=== PATIENT | male | born 1950 | race Caucasian/White ===

== ENCOUNTER 2024-08-02 11:49 | Emergency (ER) | payer MEDICARE, SELFPAY ==
[2024-08-02] VITALS (10 sets, daily range): BP systolic 132–162; BP diastolic 73–89; BMI 24.9
[2024-08-02 12:25] LABS: Hematocrit 39.5 % (39.0-52.0); Hemoglobin 12.9 g/dL (13.0-18.0); Mean Corp Hgb Conc. 32.7 g/dL (33.0-37.0); Mean Corpuscular Hgb 30.4 pg (27.0-31.0); Mean Corpuscular Volume 92.9 fL (80.0-94.0); Mean Platelet Volume 8.9 fL (7.4-10.4); Platelet Count 225 10^3/uL (130-400); Red Blood Cell Count 4.25 10^6/uL (4.70-6.10); Red Cell Dist. Width 13.9 % (11.5-14.5); White Blood Cell Count 4.7 10^3/uL (4.8-10.8)
[2024-08-02 12:47] LABS: NT-proBNP 147 pg/ml; Troponin I 0.016 ng/ml
--- NOTE | 2024-08-02 12:48 | ED.GENMED ---
History of Present Illness
General
Chief Complaint: Breathing Problem
Source: patient
Exam Limitations: none
Time Seen by Provider: 08/02/24 11:59
Nursing documentation reviewed up to this point in time: agreed with
History of Present Illness
History of Present Illness:
Patient is a 74-year-old male presenting with police for medical clearance prior to incarceration. Patient reports approximately 1 week of mild chest pain and mild shortness of breath which he does have at baseline with known COPD. Patient has
had a nonproductive cough. Denies any fevers, chills, tearing back pain.
Patient states chest pain has been essentially constant since last week and not exertional. No pleuritic component to pain. Patient states he is now feels extremely dry and he is very thirsty. He states he has not been eating and drinking as much
as he should.
Patient does state that he was seen at a primary care doctor last week and found to have the flu. He was prescribed a medication that he is still currently taking�which he believes is Tamiflu.
No recent travel or surgeries. No lower extremity pain/edema.
Past History
Past History
ED Past Medical History: CAD and COPD; Negative Arrthythmia or Asthma
ED Past Surgical History: Cardiac (Stent)
Social History
Tobacco: Former smoker
Alcohol: None
Drug: None
Personal: Other (Noncontributory)
Living: correction
Employment: Not employed
Family History
Family History: Hypertension
Review of Systems
Review of Systems
Allergies reviewed?: Yes
All Other Systems: ROS reviewed and negative except as documented in HPI and ROS
Phy Exam
Physical Exam
Physical Exam:
Vitals: Patient's vital signs are stable. Afebrile
General: Patient is well appearing, no acute distress. Nontoxic-appearing
Skin: Warm and dry, no rashes or lesions
Head: Normocephalic, atraumatic
Eyes: Sclera nonicteric. EOMs intact. No nystagmus.
Throat: Protecting airway
Neck: Normal ROM, no cervical spine tenderness, no meningismus
Cardiac: Regular rate and rhythm, no murmurs. No reproducible chest wall tenderness
Pulm: O2 saturation 97 on room air. Normal respiratory effort, no wheezes, rales, rhonchi heard on exam.
Abdomen: Abdomen soft. No abdominal tenderness.
Extremities: No evidence of cyanosis or edema. Bilateral DP pulses palpable
Neuro: AAOx3. Grossly intact.
Psychiatric: Normal affect.
Scores
Heart Failure Risk
Heart Failure Risk Score: Not Applicable
Course
Orders/Labs/Results
Orders:
Orders
08/02/24 11:55
Electrocardiogram (*1) Urgent
Reason for Study: Shortness of Breath
EKG- Treatment ONCE
CR Chest - 2 Views Urgent
Comment:
Reason For Exam: shortness of breath
08/02/24 12:10
COVID-19 Antigen Urgent
Source: Nasal Swab
Complete Blood Count/With Diff Urgent
Comprehensive Metabolic Panel Urgent
NT-proBNP Urgent
Troponin I Routine
Influenza A+B Rapid Molecular Urgent
DARA Source: Nasal Swab
Specimen Description:
08/02/24 12:49
0.9% Sodium Chloride 1000 ml [Nss] 1,000 ml IV BOLUS
08/02/24 12:57
Ipratropium/Albuterol Sulfate [Duoneb] 3 ml INH R NOW STA
08/02/24 14:56
Troponin I Urgent
08/02/24 15:10
Electrocardiogram (*1) Urgent
Reason for Study: Chest Pain
EKG- Treatment ONCE
Abnormal Lab Results
08/02/24
12:10
WBC 4.7 L 10^3/uL
(4.8-10.8)
RBC 4.25 L 10^6/uL
(4.70-6.10)
Hgb 12.9 L g/dL
(13.0-18.0)
MCHC 32.7 L g/dL
(33.0-37.0)
Creatinine 0.6 L mg/dL
(0.7-1.3)
08/02/24 12:10
08/02/24 12:10
Vital Signs
Initial and Last Documented VS:
Initial Vital Signs
Pulse Resp Pulse Ox
79 27 97
08/02/24 11:59 08/02/24 11:59 08/02/24 11:59
Last Documented Vital Signs
Temp Pulse Resp BP Pulse Ox
97.6 F 67 20 133/73 96
08/02/24 12:14 08/02/24 15:54 08/02/24 15:54 08/02/24 15:54 08/02/24 15:54
MDM/Problems Addressed
Differential Diagnosis Includes:
Not limited to: Viral illness, COPD exacerbation, bronchitis,, acute coronary syndrome, etc.
MDM/Problems Addressed:
74 y.o male presenting with police for medical clearance prior to incarceration. Patient with 1 week of constant chest pressure and chronic dyspnea with recently dx influenza on tamiflu. No fevers. No exertional/ pleuritic component to chest pain.
Patient arrives hypertensive otherwise with stable vital signs. He is not hypoxic. Physical exam as above. EKG shows NSR without acute ischemic changes. Labs, troponin, BNP, CXR ordered and pending. Suspect symptoms likely secondary to known
ifluenza/viral illness. Will eval for possible pneumonia with CXR. Low suspicion for ACS or PE. No evidence of DVT on exam. Will give duoneb for symptomatic tx given known COPD. IVF.
Update: Patient positive for influenza A (apparently dx this past week by PCP). He is already on tamiflu. CXR shows no signs of pneumonia. Labs reveal mild leukopenia consistent with viral infection. Troponin negative x 2. Ultimately - suspect
symptoms 2/2 improving influenza. Patient remains hemodynamically stable, not hypoxic or tachycardic. He is not tachypneic. Advised to complete tamiflu. Otherwise- supportive care. Return precautions discussed. Patient stable for medical
incarceration.
Chronic conditions affecting care:
Hypertension, hyperlipidemia, COPD, CAD
Acute Exacerbation and/or Progression of Chronic Illness:
Acutely hypertensive
*Radiology
Radiology exam reviewed: preliminary read by ED provider (Chest x-ray reviewed by ar-no acute abnormality) and radiology read reviewed
*Pulse Oximetry
Patient hypoxic: no
*EKG
Interpreted by ED Provider?: Yes
EKG Intrepretation Date: 08/02/24
Interpretation: normal
Comparison EKG: no changes
Heart Rate: 74
Rate: normal
Rhythm: sinus
Irving: normal axis
Interval: normal QT interval
QRS Pattern: normal QRS
Ischemia: no ischemia
*Head Char Filter Tank Tender Interpretation
Rate: normal
Interpretation: normal
Heart Rate: 64
Rhythm: sinus
*Critical Care Note
Total Time (30-74mins, 75-104mins- exclusive of procedures): Not Applicable
ED Attending Note
-
Portions of this chart may have been created with voice recognition software.� Occasional wrong word or��sound alike� substitutions may have occurred due to the inherent limitations of voice recognition software.
Discharge Plan
Departure
Patient Disposition: Long-Term
Date of Disposition: 08/02/24
Time of Disposition: 15:48
Patient with high blood pressure during this ER visit?: Yes
Condition: Good
Covid-19: Negative COVID-19
Discharge Problem:
Influenza A, Chronic dyspnea
Instructions: Shortness of Breath (Dyspnea) (DC), Flu in adults - ED discharge instructions, BLOOD PRESSURE
Prescriptions:
No Action
metformin 500 MG tablet
500 mg PO BID@0800,1700
atorvastatin 80 MG tablet
80 mg PO HS
clopidogrel 75 MG tablet
75 mg PO DAILY
aspirin 81 MG tablet,delayed release (DR/EC)
81 mg PO DAILY
lorazepam 0.5 MG tablet
1 mg PO TID
pantoprazole 40 MG tablet,delayed release (DR/EC)
40 mg PO DAILY
furosemide 20 MG tablet
20 mg PO DAILY
albuterol sulfate 1 PUFF HFA aerosol inhaler
2 puff inhalation R QIDPRN PRN (Reason: sob/wheeze)
multivitamin with folic acid [Tab-A-Alivia] 1 TABLET tablet
1 tab PO DAILY
ascorbic acid (vitamin C) [Vitamin C] 1,000 MG tablet
1,000 mg PO DAILY
albuterol sulfate 2.5 MG/3 ML solution for nebulization
2.5 mg inhalation R QIDPRN PRN (Reason: sob/wheezing)
lisinopril 2.5 MG tablet
2.5 mg PO DAILY
zinc sulfate 220 MG capsule
220 mg PO TID
cholecalciferol (vitamin D3) 2,000 UNITS tablet
2,000 units PO DAILY
albuterol sulfate [Proventil HFA] 90 MCG/PUFF HFA aerosol inhaler
1 puff inhalation Q4HPRN PRN (Reason: shortness of breath) Qty: 1 0RF
Referrals:
UNKNOWN - PT DOES,NOT KNOW [Family Provider] -
Activity Restrictions/Additional Instructions:
Return to the emergency department for any high fevers, chest pain, difficulties breathing, worsening in current symptoms, or any other concerns
-As discussed�you were influenza A positive on the emergency department. This is likely contributing to your shortness of breath, along with your known COPD.
-Can take Tylenol as needed for any pain/fever. Stay well-hydrated. Get plenty rest.
-Continue to take all other medications as prescribed.
-Follow-up with primary care as needed for further evaluation/management
Monitor your symptoms and return to the emergency department with any acute worsening/new symptoms or any other concerns
PATIENT IS MEDICALLY CLEARED FOR INCARCERATION
Interventions
Interventions:
*Risk Screen - Suicide Last Done: 08/02/24 12:14
*General Assessment Last Done: 08/02/24 12:14
*Neglect/Abuse Screening Last Done: 08/02/24 12:14
ED- Fall Risk Assessment Last Done: 08/02/24 12:14
*ED COVID-19 Vaccine History Last Done: 08/02/24 12:14
*Nursing Disposition Last Done: 08/02/24 16:19
ED- Cardiac Assessment Last Done: 08/02/24 12:14
ED- Pulmonary Assessment Last Done: 08/02/24 12:14
Discharge Date and Time
Discharge Date/Time: 08/02/24 16:21
Print Language: [place]
[2024-08-02 12:51] LABS: COVID-19 Antigen Negative (Negative)
[2024-08-02 12:54] LABS: ALT (SGPT) 16 U/L (0-50); AST (SGOT) 30 U/L (17-59); Albumin 3.9 g/dl (3.5-5.0); Alkaline Phosphatase 68 U/L (38-126); Blood Urea Nitrogen 19 mg/dl (9-20); Calcium 8.5 mg/dl (8.4-10.2); Carbon Dioxide 28 mmol/L (22-30); Chloride 105 mmol/L (98-107); Estimated Creatinine Clearance 90 ml/min; Glucose 96 mg/dl (70-99); Sodium 139 mmol/L (135-145); Total Bilirubin 0.7 mg/dl (0.2-1.3); Total Protein 6.4 g/dl (6.3-8.2); eGFR > 60.00
[2024-08-02 12:58] LABS: % Basophils 0.2 % (0-2); % Eosinophils 1.3 % (0-6); % Immature Granulocytes 0.2 % (0-0.5); % Lymphocytes 29.7 % (20.5-51.1); % Monocytes 7.2 % (1.7-9.3); % Neutrophils 61.4 % (42.2-75.2); Absolute Eosinophils 0.1 10^3/uL (0-0.7); Absolute Lymphocytes 1.4 10^3/uL (1.2-3.4); Absolute Monocytes 0.3 10^3/uL (0.1-0.6); Absolute Neutrophils 2.9 10^3/uL (1.4-6.5); Nucleated Red Blood Cells % 0 % (-)
--- NOTE | 2024-08-02 13:23 | EDRN ---
potassium level drawn and sent, Cardizem gtt titrated off per Dr. Castellanos
[2024-08-02] MEDS: DUONEB 3 ML INH (13:33)
[2024-08-02] MEDS: NSS 1000 IV (13:37)
--- NOTE | 2024-08-02 15:01 | EDRN ---
second troponin drawn and sent
[2024-08-02 15:34] LABS: Troponin I 0.013 ng/ml
== END 2024-08-02 16:21 ==
LOC: EMR 11:49
PROVIDERS: Physician Assistant; EMERGENCY PHYSICIAN Emergency Medicine
DX: J10.1 Influenza due to other identified influenza virus with other respiratory manifestations (principal); J44.9 Chronic obstructive pulmonary disease, unspecified; I25.10 Atherosclerotic heart disease of native coronary artery without angina pectoris; E78.5 Hyperlipidemia, unspecified; I10 Essential (primary) hypertension; Z87.891 Personal history of nicotine dependence; Z95.5 Presence of coronary angioplasty implant and graft
CPT/HCPCS: 94640; 99284; 96360; 71046; 80053; 83880; 84484; 85025; 87502; 87811; 93005

== ENCOUNTER 2024-08-04 21:13 | Observation (INO) | payer OTHER, SELFPAY ==
[2024-08-04 12:53] VITALS: BP 117/65; BMI 25.0
[2024-08-04 12:55] VITALS: BP 117/65
[2024-08-04 14:00] VITALS: BP 97/56
[2024-08-04 14:01] LABS: % Basophils 0.1 % (0-2); % Eosinophils 2.3 % (0-6); % Immature Granulocytes 0.3 % (0-0.5); % Monocytes 5.9 % (1.7-9.3); % Neutrophils 76.4 % (42.2-75.2); Absolute Eosinophils 0.2 10^3/uL (0-0.7); Absolute Lymphocytes 1.1 10^3/uL (1.2-3.4); Absolute Monocytes 0.4 10^3/uL (0.1-0.6); Absolute Neutrophils 5.6 10^3/uL (1.4-6.5); Hematocrit 40.7 % (39.0-52.0); Hemoglobin 13.3 g/dL (13.0-18.0); Mean Corp Hgb Conc. 32.7 g/dL (33.0-37.0); Mean Corpuscular Hgb 30.4 pg (27.0-31.0); Mean Corpuscular Volume 92.9 fL (80.0-94.0); Nucleated Red Blood Cells % 0 % (-); Platelet Count 303 10^3/uL (130-400); Red Blood Cell Count 4.38 10^6/uL (4.70-6.10); White Blood Cell Count 7.3 10^3/uL (4.8-10.8)
[2024-08-04 14:16] LABS: ALT (SGPT) 17 U/L (0-50); AST (SGOT) 29 U/L (17-59); Albumin 3.9 g/dl (3.5-5.0); Alkaline Phosphatase 81 U/L (38-126); Blood Urea Nitrogen 19 mg/dl (9-20); Calcium 8.3 mg/dl (8.4-10.2); Carbon Dioxide 29 mmol/L (22-30); Chloride 101 mmol/L (98-107); Estimated Creatinine Clearance 75 ml/min; Glucose 92 mg/dl (70-99); Lactic Acid 2.1 mmol/L (0.7-2.0); Sodium 139 mmol/L (135-145); Total Bilirubin 0.6 mg/dl (0.2-1.3); Total Protein 6.9 g/dl (6.3-8.2); eGFR > 60.00
[2024-08-04] MEDS: ProAIR HFA INHALER 2 PUFF INH (14:19)
[2024-08-04 14:26] LABS: NT-proBNP 223 pg/ml; Troponin I < 0.012 ng/ml
[2024-08-04 15:00] VITALS: BP 101/66
[2024-08-04] MEDS: DECADRON 10 MG IV (17:35)
[2024-08-04] MEDS: ROCEPHIN 2000 MG IV (17:35)
[2024-08-04] MEDS: ZITHROMAX INFUSION 250 IV (17:36)
[2024-08-04 17:42] LABS: Lipase 58 U/L (23-300)
--- NOTE | 2024-08-04 17:45 | ED.GENMED ---
History of Present Illness
General
Chief Complaint: Breathing Problem
Source: patient and ambulance crew
Exam Limitations: none
Time Seen by Provider: 08/04/24 13:07
Nursing documentation reviewed up to this point in time: agreed with
History of Present Illness
History of Present Illness:
74-year-old male presenting to the emergency department with concerns of hypoxemia all the present. Pulse ox in the 80s. Recently diagnosed with the flu has been taking Tamiflu without improvement. Does have some respiratory noise according to
staff. He denies any chest pain but does have significant shortness of breath. Feels very weak and tired
Past History
Past History
ED Past Medical History: CAD and COPD; Negative Arrthythmia or Asthma
ED Past Surgical History: Cardiac (Stent)
Social History
Tobacco: Former smoker
Alcohol: None
Drug: None
Personal: Other (Noncontributory)
Living: penitentiary
Employment: Not employed
Family History
Family History: Hypertension
Review of Systems
Review of Systems
Allergies reviewed?: Yes
All Other Systems: ROS reviewed and negative except as documented in HPI and ROS
Phy Exam
Physical Exam
Physical Exam:
GENERAL: Alert , in no apparent distress
EYE: pupils equal and reactive
NECK: Supple, no significant adenopathy.
ENT: o/p clr, mmm.
CARDIAC: Regular rate and rhythm .
LUNGS: Diffuse end expiratory wheezing, bilateral lower lobe rhonchi
ABDOMEN: Soft, without focal tenderness, no r/g, no cvat
NEUROLOGICAL: Alert and oriented, no focal neuro deficits
SKIN: Warm and dry, skin intact.
MUSCULOSKELETAL: No edema, well perfused.
PSYCH: Normal and appropriate interaction.
Scores
Heart Failure Risk
Heart Failure Risk Score: Not Applicable
Course
Orders/Labs/Results
Orders:
Orders
08/04/24 13:38
Cardiac Monitoring- Treatment ONCE
Albuterol [ProAIR HFA INHALER] 2 puff INH R NOW STA
08/04/24 13:39
Electrocardiogram (*1) Stat
Reason for Study: Other
Other Reason for Exam: pneumonia
EKG- Treatment ONCE
CR Chest - 2 Views Urgent
Comment:
Reason For Exam: sob, rhonchi rll
Peak Flow Rate [RESP] Urgent
Quantity: 1
Pre-Bronchodilator: Yes
Post Bronchodilator: Yes
Special Instructions: Pre and Post Peak Flow before and after Bronchodilator
08/04/24 13:47
Complete Blood Count/With Diff Urgent
Comprehensive Metabolic Panel Urgent
Lactic Acid Q4H
Comment: CANCEL 2nd LACTIC ACID IF 1st LACTIC ACID IS LESS THAN 2
Lipase Urgent
Comment: ADD ON
NT-proBNP Urgent
Troponin I Urgent
08/04/24 16:52
Miscellaneous Order As Directed
Miscellaneous order: Ambulatory pulse ox
08/04/24 17:02
Add On- LAB Urgent
Tests Added?: lipase
08/04/24 17:19
Azithromycin 500 mg/250 ml [Zithromax Infusion] 500 mg in 250 ml IV NOW
CefTRIAXone [Rocephin] 2,000 mg IV NOW STA
Dexamethasone Sod Phosphate [Decadron] 10 mg IV NOW STA
08/04/24 17:21
Lactic Acid Q4H
Comment: CANCEL 2nd LACTIC ACID IF 1st LACTIC ACID IS LESS THAN 2
08/04/24 17:27
Albuterol [ProAIR HFA INHALER] 8 puff INH R NOW STA
Abnormal Lab Results
08/04/24
13:47
RBC 4.38 L 10^6/uL
(4.70-6.10)
MCHC 32.7 L g/dL
(33.0-37.0)
Absolute Lymphs (auto) 1.1 L 10^3/uL
(1.2-3.4)
Neutrophils % 76.4 H %
(42.2-75.2)
Lymphocytes % 15.0 L %
(20.5-51.1)
Lactic Acid 2.1 H mmol/L
(0.7-2.0)
Calcium 8.3 L mg/dl
(8.4-10.2)
08/04/24 13:47
08/04/24 13:47
Vital Signs
Initial and Last Documented VS:
Initial Vital Signs
Temp Pulse Resp BP Pulse Ox
97.5 F 85 24 117/65 95
08/04/24 12:53 08/04/24 12:53 08/04/24 12:53 08/04/24 12:53 08/04/24 12:53
Last Documented Vital Signs
Temp Pulse Resp BP Pulse Ox
97.5 F 67 20 101/66 96
08/04/24 12:53 08/04/24 15:00 08/04/24 15:00 08/04/24 15:00 08/04/24 15:00
MDM/Problems Addressed
MDM/Problems Addressed:
74-year-old male presenting [facility] with concerns of respiratory distress while at the penitentiary. Here pulse ox in the low 90s without oxygen. He is When I assessed him. He has significant respiratory noise diffusely including expiratory
wheezing. Does not history of COPD. Was started on a steroid as well as albuterol treatment. Otherwise x-ray with possible early pneumonia though unclear patient was started on antibiotics otherwise will be admitted due to respiratory distress.
*Critical Care Note
Total Time (30-74mins, 75-104mins- exclusive of procedures): Not Applicable
ED Attending Note
-
Portions of this chart may have been created with voice recognition software.� Occasional wrong word or��sound alike� substitutions may have occurred due to the inherent limitations of voice recognition software.
Discharge Plan
Departure
Patient Disposition: Admit
Date of Disposition: 08/04/24
Time of Disposition: 17:45
Admit to: Med/Surg
Admit to doctor: Ej
Presentation/result/management discussed w/ accepting MD/DO: Hospitalist
Patient with high blood pressure during this ER visit?: No
Condition: Good
Covid-19: Not Applicable
Discharge Problem:
Influenza, Hypoxemia, COPD exacerbation
Prescriptions:
No Action
metformin 500 MG tablet
500 mg PO BID@0800,1700
atorvastatin 80 MG tablet
80 mg PO HS
clopidogrel 75 MG tablet
75 mg PO DAILY
aspirin 81 MG tablet,delayed release (DR/EC)
81 mg PO DAILY
lorazepam 0.5 MG tablet
1 mg PO TID
pantoprazole 40 MG tablet,delayed release (DR/EC)
40 mg PO DAILY
furosemide 20 MG tablet
20 mg PO DAILY
albuterol sulfate 1 PUFF HFA aerosol inhaler
2 puff inhalation R QIDPRN PRN (Reason: sob/wheeze)
multivitamin with folic acid [Tab-A-Alivia] 1 TABLET tablet
1 tab PO DAILY
ascorbic acid (vitamin C) [Vitamin C] 1,000 MG tablet
1,000 mg PO DAILY
albuterol sulfate 2.5 MG/3 ML solution for nebulization
2.5 mg inhalation R QIDPRN PRN (Reason: sob/wheezing)
lisinopril 2.5 MG tablet
2.5 mg PO DAILY
zinc sulfate 220 MG capsule
220 mg PO TID
cholecalciferol (vitamin D3) 2,000 UNITS tablet
2,000 units PO DAILY
albuterol sulfate [Proventil HFA] 90 MCG/PUFF HFA aerosol inhaler
1 puff inhalation Q4HPRN PRN (Reason: shortness of breath) Qty: 1 0RF
Referrals:
[facility] [Family Provider] -
Interventions
Interventions:
*Risk Screen - Suicide Last Done: 08/04/24 12:53
*General Assessment Last Done: 08/04/24 12:53
ED- Fall Risk Assessment Last Done: 08/04/24 12:58
ED- Cardiac Assessment Last Done: 08/04/24 12:58
ED- Pulmonary Assessment Last Done: 08/04/24 12:58
Discharge Date and Time
Print Language: MALAY
[2024-08-04 17:46] LABS: Lactic Acid 1.8 mmol/L (0.7-2.0)
[2024-08-04] MEDS: ProAIR HFA INHALER 8 PUFF INH (18:33)
--- NOTE | 2024-08-04 20:20 | HPS.HSE ---
Family Physician
-
Family Physician: Facility [facility]
Chief Complaint
-
AMS, SOB, in [facility]
History of Present Illness
The patient is a 74-year-old male with PMH significant for CAD, COPD, who presents to the ED from [facility], due to concerns for low oxygen saturation in the group home, associated with increased lethargy and mental status changes. hypoxemia all the
present. Oxygen saturation was noted to be in the 80s. He recently was diagnosed with Flu A (on 08/02), and has been taking Tamiflu without improvement. The patient denies complaints at this time. He is somnolent but arousable during this history and
physical, is able to answer questions but falls asleep quickly. Note by ED provider 'He denies any chest pain but does have significant shortness of breath.' Feels very weak and tired.
ED txt: IV Azithromycin, IV Rocephin, Dexa 10 mg IV once, Albuterol INH
Medical History
Past Medical History
Past Medical History: Reports CAD and COPD
Past Surgical History: Reports Cardiac (stent)
Social History
Tobacco: Former Smoker
Alcohol: None
Living: Snf
Family History
Family History: Hypertension
Allergies / Home Medications
Allergies reflects when Allergies were last updated in [facility].
Home Medications with original date entered in [facility]
Allergy/Medication List:
Allergies
Allergy/AdvReac Type Severity Reaction Status Date / Time
cephalexin [From Keflex] Allergy Unknown Verified 08/04/24 12:52
clarithromycin [From Biaxin] Allergy Unknown Verified 08/04/24 12:52
Home Medications
albuterol sulfate 90 mcg/actuation aerosol inhaler 2 puff inhalation R QIDPRN PRN sob/wheeze 10/16/19
aspirin 81 mg tablet,delayed release 81 mg PO DAILY 10/16/19
atorvastatin 80 mg tablet 80 mg PO HS 10/16/19
clopidogrel 75 mg tablet 75 mg PO DAILY 10/16/19
furosemide 20 mg tablet 20 mg PO DAILY 10/16/19
lorazepam 0.5 mg tablet 1 mg PO TID 10/16/19
metformin 500 mg tablet 500 mg PO BID@0800,1700 10/16/19
multivitamin with folic acid 400 mcg tablet (Tab-A-Alivia) 1 tab PO DAILY 10/16/19
pantoprazole 40 mg tablet,delayed release 40 mg PO DAILY 10/16/19
albuterol sulfate 2.5 mg/3 mL (0.083 %) solution for nebulization 2.5 mg inhalation R QIDPRN PRN sob/wheezing 07/03/21
albuterol sulfate 90 mcg/actuation aerosol inhaler (Proventil HFA) 1 puff inhalation Q4HPRN PRN shortness of breath ##1 07/03/21
ascorbic acid (vitamin C) 1,000 mg tablet (Vitamin C) 1,000 mg PO DAILY 07/03/21
cholecalciferol (vitamin D3) 50 mcg (2,000 unit) tablet 2,000 units PO DAILY 07/03/21
lisinopril 2.5 mg tablet 2.5 mg PO DAILY 07/03/21
zinc sulfate 50 mg zinc (220 mg) capsule 220 mg PO TID 07/03/21
Review of Systems
-
A 12 point ROS was completed and negative except as noted: Yes
Physical Exam
Vital Signs
Vital Signs
Temp Pulse Resp BP Pulse Ox
97.5 F 88 18 101/66 95
08/04/24 12:53 08/04/24 18:35 08/04/24 18:35 08/04/24 15:00 08/04/24 18:35
Physical Exam
General: Appears Chronically Ill
HEENT: NormoCephalic, Anicteric and Other (dry mucous membranes)
Respiratory: Wheezes (bilateral end expiratory, tight lung sounds)
Cardiac: S1/S2 and Regular Rhythm
GI: Soft, Non Tender and Non Distended
Musculoskeletal: No Clubbing, No Cyanosis and No Edema
Skin: Warm and Dry
Neuro: No Motor Deficits and Sedated
Psych: Calm
Laboratory Results
-
08/04/24 13:47
08/04/24 13:47
Laboratory Results
Lactic Acid 1.8 mmol/L (0.7-2.0) 08/04/24 17:21
Total Bilirubin 0.6 mg/dl (0.2-1.3) 08/04/24 13:47
AST 29 U/L (17-59) 08/04/24 13:47
ALT 17 U/L (0-50) 08/04/24 13:47
Alkaline Phosphatase 81 U/L (38-126) 08/04/24 13:47
Troponin I < 0.012 ng/ml 08/04/24 13:47
Lipase 58 U/L (23-300) 08/04/24 13:47
Data Reviewed
-
Diagnostic Radiology: Report Reviewed by me (CXR cardiomegaly. There is elevation of the left hemidiaphragm with left basilar opacities which likely represent chronic atelectasis/scarring, less likely developing pneumonia.)
Medical Tests (Nuc Med, Echo, EKG etc): Report Reviewed by me (EKG NSR, non-specific T wave abnormalities)
Impression/Plan
-
IMPRESSION:
The patient is a 74-year-old male with PMH significant for CAD, COPD, who presents to the ED from [facility], due to concerns for low oxygen saturation in the group home, associated with increased lethargy and mental status changes. hypoxemia all the
present. Oxygen saturation was noted to be in the 80s. He recently was diagnosed with Flu A (on 08/02), and has been taking Tamiflu without improvement. The patient denies complaints at this time. He is somnolent but arousable during this history and
physical, is able to answer questions but falls asleep quickly. Note by ED provider 'He denies any chest pain but does have significant shortness of breath.' Feels very weak and tired.
ED txt: IV Azithromycin, IV Rocephin, Dexa 10 mg IV once, Albuterol INH
#Acute exacerbation of COPD with acute respiratory insufficiency
-med surg admit obs status
-cont steroids-IV Dexa 4 mg TID and wean down per clinical course
-Doxy (allergy to clarithromycin)
-Duo-nebs, respiratory therapy, mucinex, consider mucomyst nebs
-pulse oximetry monitoring, O2 per NC if needed to keep O2 >92
#CAD
-pending med rec, will add back home meds once med rec complete
#Pt from group home
-officers at bedside
DVT proph-Lovenox
Full Code
[2024-08-04 21:58] VITALS: BP 139/72; BMI 24.2
[2024-08-04] MEDS: TYLENOL 650 MG PO (22:24)
[2024-08-04] MEDS: NSS 1000 IV (22:24)
[2024-08-04] MEDS: DECADRON 4 MG IV (23:18)
[2024-08-05 06:00] VITALS: BMI 23.9
[2024-08-05] MEDS: TYLENOL 650 MG PO ×3 (06:02→16:25)
--- NOTE | 2024-08-05 06:39 | PTCARENOTE ---
Patient arrived on unit @2149 via stretcher from ED, ambulate to bed with assist x1 RW. Patient c/o 01/07 mid back pain (not new per pt), prn tylenol given as requested. Patient AAOx3, drowsy, forgetful. Med rec unable to be completed, pt unable to
recall any information on medications. Skin check completed, oriented to unit, call au within reach.
0600, pt voided 120 mls, bladder scan 459 ml. SHOP TECH notified, order received. Straight cath tolerated with 300 mls output.
[2024-08-05 07:35] VITALS: BP 137/73
[2024-08-05] MEDS: DUONEB 3 ML INH ×4 (07:47→20:17)
[2024-08-05] MEDS: PULMICORT 0.5 MG INH ×2 (07:47→20:17)
[2024-08-05 08:33] LABS: % Immature Granulocytes 0.2 % (0-0.5); % Lymphocytes 11.7 % (20.5-51.1); % Monocytes 2.9 % (1.7-9.3); % Neutrophils 85.2 % (42.2-75.2); Absolute Lymphocytes 0.6 10^3/uL (1.2-3.4); Absolute Monocytes 0.1 10^3/uL (0.1-0.6); Absolute Neutrophils 4.2 10^3/uL (1.4-6.5); Hematocrit 38.5 % (39.0-52.0); Hemoglobin 12.7 g/dL (13.0-18.0); Mean Corpuscular Hgb 29.8 pg (27.0-31.0); Mean Corpuscular Volume 90.4 fL (80.0-94.0); Mean Platelet Volume 8.6 fL (7.4-10.4); Nucleated Red Blood Cells % 0 % (-); Platelet Count 288 10^3/uL (130-400); Red Blood Cell Count 4.26 10^6/uL (4.70-6.10); White Blood Cell Count 4.9 10^3/uL (4.8-10.8)
[2024-08-05] MEDS: MUCINEX 600 MG PO (08:59)
[2024-08-05] MEDS: VIBRAMYCIN 100 MG PO (08:59)
[2024-08-05] MEDS: DECADRON 4 MG IV (08:59)
--- NOTE | 2024-08-05 11:20 | CM ---
Patient on restrictions and supervision of [facility]. CM spoke with [facility] at [facility] and per nurse patient normally does not have any assistive devices and wears dentures, glasses. Per nursing patient can be difficult to understand, with his speech.
Patient was recently [facility] to the detention on 08/02/24 and had been there previously several months ago. Current plan is for discharge back to the detention when medically appropriate. CM will continue to follow for discharge planning needs.
PLan; return to [facility]
call to [facility] [phone]
[2024-08-05 11:42] LABS: Blood Urea Nitrogen 25 mg/dl (9-20); Calcium 8.1 mg/dl (8.4-10.2); Carbon Dioxide 24 mmol/L (22-30); Chloride 104 mmol/L (98-107); Estimated Creatinine Clearance 87 ml/min; Glucose 180 mg/dl (70-99); Potassium 4.7 mmol/L (3.5-5.1); Sodium 139 mmol/L (135-145); eGFR > 60.00
[2024-08-05] MEDS: TORADOL 30 MG IV (12:41)
--- NOTE | 2024-08-05 13:10 | PTCARENOTE ---
Dr. Coon made aware that this RN spoke to [facility] RN about patients medications. RN at [facility] can confirm that patient takes Gabapentin 300 mg TID and Effexor 150 mg daily. RN at [facility] stated she is unsure if patient takes any other
medications then that because patient went to [facility] 08/02/24 and was on meth at that time. Per RN at [facility], patient was being treated for meth withdrawal and was given Ativan 1 mg, Benadryl, Klonopin 1mg, and Seroquel 25 mg yesterday. Patient started on
withdrawal protocol. Patient unsure of what medications he takes.
[2024-08-05 14:40] VITALS: BP 128/56
--- NOTE | 2024-08-05 14:55 | W.PN.HOSP.TC ---
Addendum entered and electronically signed by Malik Coon DO 08/06/24 15:35:
>30 minutes were utilized for discharge planning and preparation as well as arrangement of outpatient follow-up
Original Note:
Today's Communication/Plan
-
Transition to prednisone
Continue with Tamiflu through 08/07
Resume CAD meds (hold Plavix as unclear timing of stent)
Order x-ray of left rib cage
Possible discharge
Assessment / Plan
Assessment / Plan
#Acute hypoxemic respiratory insufficiency
#Influenza A
#COPD with exacerbation
-Briefly required oxygen here, started on Tamiflu at present on 08/02
-Developed worsening shortness of breath and wheezing and brought into the hospital yesterday
-Briefly required supplemental oxygen, CO2 borderline high on admission BMP
-Was given 1 dose of IV antibiotics on arrival; continued on Tamiflu and started on dexamethasone
-As of this morning SpO2 97% on room air
-Transition to prednisone for 5-day course
-Continue Tamiflu through 08/07/2024
-SpO2 goal 88% or higher
#Left sided rib 3�5 pain
-Patient was complaining of tenderness to the ribs near the left axilla
-On palpation he does have reproducible tenderness, no gross deformity or step-offs
-He denies any known injury, reportedly was recently sent to longterm, question trauma near that time
-Ordered x-ray of the left rib cage, 3 view
-Tylenol and Toradol for pain
#CAD s/p PCI
-OP records show home meds of DAPT, high intensity statin, ACEi
-Nursing spoke with present today, they were unable to provide med rec as they do not know his meds
-Will try to obtain supplemental history from outside records if present
-Will resume him on statin, ACEi, and aspirin for now
#T2DM
-Rru-hovfsbo-bnjjyxzuj, home medications include metformin twice daily
-No recent A1c thoug doubt that he has been compliant with his outside regimen
-No known history of microvascular disease complications
-Start ISS with Accu-Cheks for now
DVT prophylaxis: Subcutaneous Lovenox
Diet: Cholesterol-lowering
CODE STATUS: Full code
Disposition: Possible DC back to residential today
Anticipated Discharge: Within 24 hours
Subjective/Interval History
-
Date of Service: August 05, 2024
Seen and examined at the bedside. No acute events reported since admission. AFVSS today
Patient was complaining of left-sided rib pain tenderness to palpation. Denies any known injury, states it been present for a few days. Reportedly, patient was just taken to longterm this past Saturday. Was being treated for opioid withdrawal while
there
Objective Data
-
Labs:
Laboratory Results
08/05/24 08/05/24
08:21 10:34
WBC 4.9
Hgb 12.7 L
Hct 38.5 L
Plt Count 288
Sodium Cancelled 139
Potassium Cancelled 4.7
Chloride Cancelled 104
Carbon Dioxide Cancelled 24
BUN Cancelled 25 H
Creatinine Cancelled 0.6 L
Glucose Cancelled 180 H
Calcium Cancelled 8.1 L
Vital Signs:
Vital Signs
Temp Pulse Resp BP Pulse Ox
97.4 F 86 20 128/56 93
08/05/24 14:40 08/05/24 14:40 08/05/24 14:40 08/05/24 14:40 08/05/24 14:40
I&O
08/04/24 08/05/24 08/06/24
06:59 06:59 06:59
Intake Total 920 / 920
Output Total 300 / 300 120 / 120
Balance -300 / -300 800 / 800
Review of Systems
-
History Source: Patient
All other systems: Reviewed and negative
Physical Exam
-
General: Well Developed, Well Nourished, No Apparent Distress and Other
HEENT: Normocephalic, Atraumatic and Moist Mucous Membranes
Respiratory: Clear to Auscultation and Non Labored Respirations; Negative Wheezes, Rales, Rhonchi or Accessory Resp Muscle Use
Cardiac: Regular Rhythm and S1/S2; Negative Murmur, Rub or Gallop
GI: Soft, Nontender and Nondistended
Musculoskeletal: No Clubbing, No Cyanosis, No Edema and Other (Tenderness to palpation of left ribs 4/5 at midaxillary line; no gross deformity or step-off)
Skin: Warm and Dry; Negative Rash
Neuro: AO x 3 and Nonfocal/Grossly Intact
Psych: Calm
Data Reviewed
-
Labs: Labs Reviewed by me and Discussed with Patient
[2024-08-05 15:01] VITALS: BMI 23.9
--- NOTE | 2024-08-05 15:30 | CM ---
Patient for discharge back to [facility]. Please call report to [phone]/fax [phone]. CM [facility] of discharge. CM will continue to follow for discharge planning needs.
Plan; return to [facility]
[2024-08-05] MEDS: LOW STRENGTH ASPIRIN 81 MG PO (15:49)
[2024-08-05] MEDS: NEURONTIN 300 MG PO (15:49)
[2024-08-05] MEDS: LIDOCAINE 4% PATCH 1 PATCH TOPICAL (15:49)
[2024-08-05 16:32] LABS: Glucose - Point of Care 194 mg/dl (70-99)
[2024-08-05] MEDS: LIPITOR 80 MG PO (17:16)
[2024-08-05] MEDS: LOVENOX 40 MG SC (17:17)
[2024-08-05] MEDS: NOVOLOG FLEXPEN-MODERATE RESISTANCE 1 UNITS SC (17:59)
[2024-08-05 18:23] VITALS: BP 116/55
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
== END 2024-08-05 21:08 ==
LOC: 3 WEST ACU 21:13
PROVIDERS: Physician Assistant; ADMITTING PHYSICIAN Internal Medicine; ATTENDING PHYSICIAN Internal Medicine; EMERGENCY PHYSICIAN Emergency Medicine
DX: J10.1 Influenza due to other identified influenza virus with other respiratory manifestations (principal); J44.1 Chronic obstructive pulmonary disease with (acute) exacerbation; R06.89 Other abnormalities of breathing; R09.02 Hypoxemia; I25.10 Atherosclerotic heart disease of native coronary artery without angina pectoris; I51.7 Cardiomegaly; R06.02 Shortness of breath; J98.11 Atelectasis; S22.42XA Multiple fractures of ribs, left side, initial encounter for closed fracture; X58.XXXA Exposure to other specified factors, initial encounter; Y93.9 Activity, unspecified; Y92.9 Unspecified place or not applicable; E11.9 Type 2 diabetes mellitus without complications; F11.20 Opioid dependence, uncomplicated; R94.31 Abnormal electrocardiogram [ECG] [EKG]; Z95.5 Presence of coronary angioplasty implant and graft; Z87.891 Personal history of nicotine dependence; Z82.49 Family history of ischemic heart disease and other diseases of the circulatory system; Z79.84 Long term (current) use of oral hypoglycemic drugs; Z79.02 Long term (current) use of antithrombotics/antiplatelets; Z79.82 Long term (current) use of aspirin; Z79.51 Long term (current) use of inhaled steroids; R41.82 Altered mental status, unspecified; Z88.1 Allergy status to other antibiotic agents
CPT/HCPCS: 71046; 71101; 80048; 80053; 82962; 83605; 83690; 83880; 84484; 85025; 87070; 93005; 94640; 96374; 96375; 99285

== ENCOUNTER 2024-08-08 17:24 | Inpatient (IN) | payer OTHER, SELFPAY ==
[2024-08-08] VITALS (14 sets, daily range): BP systolic 107–132; BP diastolic 52–66; BMI 25.0
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
[2024-08-08] MEDS: DUONEB 3 ML INH ×2 (09:20→21:45)
[2024-08-08 09:49] LABS: % Basophils 0.1 % (0-2); % Eosinophils 0.1 % (0-6); % Immature Granulocytes 0.2 % (0-0.5); % Neutrophils 85.6 % (42.2-75.2); Absolute Lymphocytes 1.1 10^3/uL (1.2-3.4); Absolute Monocytes 0.6 10^3/uL (0.1-0.6); Absolute Neutrophils 10.5 10^3/uL (1.4-6.5); Hematocrit 41.5 % (39.0-52.0); Hemoglobin 13.7 g/dL (13.0-18.0); Mean Corpuscular Hgb 30.5 pg (27.0-31.0); Mean Corpuscular Volume 92.4 fL (80.0-94.0); Mean Platelet Volume 8.9 fL (7.4-10.4); Nucleated Red Blood Cells % 0 % (-); Platelet Count 385 10^3/uL (130-400); Red Blood Cell Count 4.49 10^6/uL (4.70-6.10); Red Cell Dist. Width 14.6 % (11.5-14.5); White Blood Cell Count 12.3 10^3/uL (4.8-10.8)
[2024-08-08 10:13] LABS: ALT (SGPT) 393 U/L (0-50); AST (SGOT) 307 U/L (17-59); Albumin 3.7 g/dl (3.5-5.0); Alkaline Phosphatase 549 U/L (38-126); Blood Urea Nitrogen 38 mg/dl (9-20); Calcium 9.1 mg/dl (8.4-10.2); Carbon Dioxide 31 mmol/L (22-30); Chloride 100 mmol/L (98-107); Estimated Creatinine Clearance 65 ml/min; Glucose 126 mg/dl (70-99); Potassium 4.5 mmol/L (3.5-5.1); Sodium 136 mmol/L (135-145); Total Bilirubin 0.9 mg/dl (0.2-1.3); Total Protein 6.9 g/dl (6.3-8.2); eGFR > 60.00
[2024-08-08] MEDS: NSS 1000 IV (11:15)
[2024-08-08] MEDS: DECADRON 10 MG IV (13:09)
[2024-08-08] MEDS: VENTOLIN NEBULES 2.5 MG INH (13:09)
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
[2024-08-08] MEDS: ADVAIR HFA 115/21 MCG INHALER 2 PUFF INH (21:45)
[2024-08-08 21:46] LABS: Glucose - Point of Care 245 mg/dl (70-99)
[2024-08-08] MEDS: NOVOLOG FLEXPEN-MODERATE RESISTANCE 3 UNITS SC (21:46)
[2024-08-08] MEDS: BENADRYL 25 MG PO (21:47)
[2024-08-08] MEDS: NEURONTIN 300 MG PO (21:48)
[2024-08-08] MEDS: TAMIFLU 75 MG PO (21:48)
[2024-08-08] MEDS: MIRAPEX 0.25 MG PO (21:48)
[2024-08-08] MEDS: LOVENOX 40 MG SC (21:48)
[2024-08-08] MEDS: KLONOPIN 0.5 MG PO (21:49)
[2024-08-08] MEDS: ZINC 50 MG PO (21:49)
[2024-08-08] MEDS: LIPITOR 80 MG PO (21:49)
[2024-08-08] MEDS: FLOMAX 0.4 MG PO (21:49)
[2024-08-08] MEDS: ZINC PO (22:33)
[2024-08-08 22:45] LABS: Glucose - Point of Care 224 mg/dl (70-99)
[2024-08-08] MEDS: SENOKOT-S 1 TABLET PO (23:15)
[2024-08-08 23:31] LABS: Amphetamines Negative (Negative); Barbiturates Negative (Negative)
[2024-08-08 23:33] LABS: Benzodiazepines Negative (Negative)
[2024-08-08 23:34] LABS: Buprenorphine Negative (Negative); Cocaine Negative (Negative); Marijuana Negative (Negative); Methadone Negative (Negative); Methamphetamines Negative (Negative); Opiates Positive (Negative); Phencyclidine Negative (Negative); Tricyclic Antidepressants Negative (Negative)
[2024-08-08 23:43] LABS: Fentanyl, Urine Negative (Negative)
[2024-08-09] VITALS (13 sets, daily range): BP systolic 98–121; BP diastolic 49–72
[2024-08-09 05:22] LABS: % Immature Granulocytes 0.5 % (0-0.5); % Lymphocytes 7.5 % (20.5-51.1); % Monocytes 3.7 % (1.7-9.3); % Neutrophils 88.3 % (42.2-75.2); Absolute Lymphocytes 0.6 10^3/uL (1.2-3.4); Absolute Monocytes 0.3 10^3/uL (0.1-0.6); Absolute Neutrophils 7.1 10^3/uL (1.4-6.5); Hematocrit 29.9 % (39.0-52.0); Mean Corp Hgb Conc. 33.4 g/dL (33.0-37.0); Mean Corpuscular Hgb 30.5 pg (27.0-31.0); Mean Corpuscular Volume 91.2 fL (80.0-94.0); Mean Platelet Volume 9.3 fL (7.4-10.4); Nucleated Red Blood Cells % 0 % (-); Platelet Count 319 10^3/uL (130-400); Red Blood Cell Count 3.28 10^6/uL (4.70-6.10); Red Cell Dist. Width 14.2 % (11.5-14.5); White Blood Cell Count 8.1 10^3/uL (4.8-10.8)
[2024-08-09 05:24] LABS: Blood Urea Nitrogen 27 mg/dl (9-20); Calcium 8.1 mg/dl (8.4-10.2); Carbon Dioxide 30 mmol/L (22-30); Chloride 103 mmol/L (98-107); Estimated Creatinine Clearance 75 ml/min; Glucose 125 mg/dl (70-99); Magnesium 2.3 mg/dl (1.6-2.3); Potassium 4.7 mmol/L (3.5-5.1); Sodium 135 mmol/L (135-145); eGFR > 60.00
[2024-08-09 07:21] LABS: Glucose - Point of Care 130 mg/dl (70-99)
[2024-08-09] MEDS: NOVOLOG FLEXPEN-MODERATE RESISTANCE 130 UNITS SC (07:24)
[2024-08-09] MEDS: ZESTRIL 2.5 MG PO (07:25)
[2024-08-09] MEDS: MIRAPEX 0.25 MG PO ×2 (07:25→19:50)
[2024-08-09] MEDS: NEURONTIN 300 MG PO ×3 (07:25→22:13)
[2024-08-09] MEDS: TAMIFLU 75 MG PO ×2 (07:26→19:50)
[2024-08-09] MEDS: ASPIR LOW (ENTERIC COATED) 81 MG PO (07:26)
[2024-08-09] MEDS: VITAMIN D3 (cholecalciferol) 50 MCG PO (07:26)
[2024-08-09] MEDS: THERAGRAN 1 TABLET PO (07:26)
[2024-08-09] MEDS: PLAVIX 75 MG PO (07:26)
[2024-08-09] MEDS: BENADRYL 25 MG PO ×2 (07:26→19:50)
[2024-08-09] MEDS: PROTONIX 40 MG PO (07:27)
[2024-08-09] MEDS: DECADRON 6 MG IV (07:27)
[2024-08-09] MEDS: DUONEB 3 ML INH ×4 (07:28→19:50)
[2024-08-09] MEDS: VITAMIN C 1000 MG PO (07:28)
[2024-08-09] MEDS: EFFEXOR XR 150 MG PO (08:18)
[2024-08-09] MEDS: ZINC 50 MG PO ×2 (08:18→17:49)
[2024-08-09 08:42] LABS: ALT (SGPT) 234 U/L (0-50); AST (SGOT) 117 U/L (17-59); Albumin 2.7 g/dl (3.5-5.0); Alkaline Phosphatase 346 U/L (38-126); Direct Bilirubin 0.2 mg/dl (0.0-0.4); Total Bilirubin 0.4 mg/dl (0.2-1.3); Total Protein 5.3 g/dl (6.3-8.2)
[2024-08-09 10:08] LABS: Glycohemoglobin (HgbA1c) 6.4 % (4.0-5.6)
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
[2024-08-09] MEDS: ADVAIR HFA 115/21 MCG INHALER 2 PUFF INH ×2 (11:17→20:09)
[2024-08-09 11:57] LABS: Glucose - Point of Care 173 mg/dl (70-99)
[2024-08-09] MEDS: NOVOLOG FLEXPEN-MODERATE RESISTANCE 1 UNITS SC (11:59)
--- NOTE | 2024-08-09 13:31 | PTOTSP ---
Speech Therapy
Presentation: BELL CLERK observed patient with several straw sips of thin liquids and bites of regular consistency solids in which patient appeared to tolerate as he did not exhibit any overt clinical s/sx of aspiration.
Swallowing functionSLP observed patient with several straw sips of thin liquids and bites of regular consistency solids in which patient appeared to tolerate as he did not exhibit any overt clinical s/sx of aspiration. Patient did, of note,
demonstrate prolonged mastication of cracker which required thin liquid wash which assisted with manipulation.
Pre RN, patient tolerated medications whole with thin liquids.
Recommendations:
1) Continue regular consistency solids and thin liquids
2) Standard aspiration precautions
3) Medications as tolerated
Plan: BELL CLERK will sign off at this time as patient's swallowing function appears to be baseline.
[2024-08-09] MEDS: D5/0.45%NACL 1000 IV (16:41)
[2024-08-09 17:42] LABS: Glucose - Point of Care 282 mg/dl (70-99)
[2024-08-09] MEDS: NOVOLOG FLEXPEN-MODERATE RESISTANCE 5 UNITS SC (17:57)
[2024-08-09] MEDS: LOVENOX 40 MG SC (19:49)
[2024-08-09 20:01] LABS: Glucose - Point of Care 163 mg/dl (70-99)
--- NOTE | 2024-08-09 20:38 | EDRN ---
Report received, introduced myself to patient who asked about his dinner, got his meal tray for him he ate 100% of his food, checked blood sugar prior to which was within limits, also bladder scanned patient as he reports he has not urinated since
they removed his self catheter earlier,325 in there informed the hospitalist and was informed to straight cath patient, will straight cath patient
--- NOTE | 2024-08-09 21:00 | EDRN ---
Patient straight cathed got 300cc out, changed patients linen on bed and clean brief placed on patient and pulled up in bed.
[2024-08-09] MEDS: ZINC PO (22:00)
[2024-08-09] MEDS: FLOMAX 0.4 MG PO (22:13)
[2024-08-09] MEDS: KLONOPIN 0.5 MG PO (22:13)
[2024-08-09] MEDS: LIPITOR 80 MG PO (22:13)
[2024-08-09] MEDS: TYLENOL #3 1 TABLET PO (22:16)
[2024-08-10] VITALS (11 sets, daily range): BP systolic 108–136; BP diastolic 54–104; PULSE 79–86; O2SAT 93; BMI 24.5
[2024-08-10] MEDS: D5/0.45%NACL 1000 IV (04:19)
[2024-08-10 06:35] LABS: % Basophils 0.1 % (0-2); % Immature Granulocytes 0.3 % (0-0.5); % Lymphocytes 11.1 % (20.5-51.1); % Monocytes 6.2 % (1.7-9.3); % Neutrophils 82.3 % (42.2-75.2); Absolute Lymphocytes 1.2 10^3/uL (1.2-3.4); Absolute Monocytes 0.7 10^3/uL (0.1-0.6); Absolute Neutrophils 9.1 10^3/uL (1.4-6.5); Hematocrit 30.3 % (39.0-52.0); Hemoglobin 10.3 g/dL (13.0-18.0); Mean Corpuscular Hgb 30.8 pg (27.0-31.0); Mean Corpuscular Volume 90.7 fL (80.0-94.0); Mean Platelet Volume 8.9 fL (7.4-10.4); Nucleated Red Blood Cells % 0 % (-); Platelet Count 340 10^3/uL (130-400); Red Blood Cell Count 3.34 10^6/uL (4.70-6.10); Red Cell Dist. Width 14.6 % (11.5-14.5); White Blood Cell Count 11.1 10^3/uL (4.8-10.8)
--- NOTE | 2024-08-10 06:41 | EDRN ---
Patient has not urinated since I straight cathed bladder scanned and got 369, tiger texted matteo, TIRE BEADER MAKER covering, order to place self catheter
[2024-08-10 07:07] LABS: ALT (SGPT) 172 U/L (0-50); AST (SGOT) 63 U/L (17-59); Albumin 2.9 g/dl (3.5-5.0); Alkaline Phosphatase 266 U/L (38-126); Blood Urea Nitrogen 29 mg/dl (9-20); Calcium 8.5 mg/dl (8.4-10.2); Carbon Dioxide 26 mmol/L (22-30); Chloride 103 mmol/L (98-107); Estimated Creatinine Clearance 87 ml/min; Glucose 114 mg/dl (70-99); Sodium 133 mmol/L (135-145); Total Bilirubin 0.7 mg/dl (0.2-1.3); Total Protein 5.5 g/dl (6.3-8.2); eGFR > 60.00
[2024-08-10] MEDS: DUONEB 3 ML INH ×4 (08:06→19:48)
[2024-08-10] MEDS: ADVAIR HFA 115/21 MCG INHALER 2 PUFF INH ×2 (08:07→19:48)
--- NOTE | 2024-08-10 08:47 | CM ---
CM reviewed chart
Pt from [facility] and admitted to from 08/04-08/05 with flu
Pt is typically indep with no ADs, wears glasses and dentures
Gloria for return to [facility] on dc
Discharge Disposition- return [facility]
Phone- [phone] Fax- [phone]
[2024-08-10] MEDS: ZINC 50 MG PO ×3 (08:54→21:41)
[2024-08-10] MEDS: VITAMIN C 1000 MG PO (08:55)
[2024-08-10] MEDS: PLAVIX 75 MG PO (08:56)
[2024-08-10] MEDS: ZESTRIL 2.5 MG PO (08:56)
[2024-08-10] MEDS: ASPIR LOW (ENTERIC COATED) 81 MG PO (08:56)
[2024-08-10] MEDS: TAMIFLU 75 MG PO ×2 (08:56→21:00)
[2024-08-10] MEDS: THERAGRAN 1 TABLET PO (08:57)
[2024-08-10] MEDS: BENADRYL 25 MG PO ×2 (08:57→21:00)
[2024-08-10] MEDS: NEURONTIN 300 MG PO ×3 (08:57→21:41)
[2024-08-10] MEDS: MIRAPEX 0.25 MG PO ×2 (08:57→21:00)
[2024-08-10] MEDS: PROTONIX 40 MG PO (08:57)
[2024-08-10] MEDS: DECADRON 6 MG IV (08:58)
[2024-08-10] MEDS: EFFEXOR XR 150 MG PO (08:58)
[2024-08-10] MEDS: VITAMIN D3 (cholecalciferol) 50 MCG PO (08:59)
[2024-08-10] MEDS: NOVOLOG FLEXPEN-MODERATE RESISTANCE SC ×2 (09:07→15:54)
[2024-08-10 09:08] LABS: Glucose - Point of Care 124 mg/dl (70-99)
[2024-08-10 11:51] LABS: Glucose - Point of Care 182 mg/dl (70-99)
--- NOTE | 2024-08-10 12:44 | TRANSFER ---
Pt transferred from ED to [facility], accompanied by two guards from [facility]. Pt walked from stretcher to bed. Maintained on 2L NC which is new this admission. CALIX. Pt aaox3, VSS, admission and assessment complete by this RN. Large bruise on left flank from
previous rib fractures. Pt also told RN of hx of meth abuse in past 12 months, MD notified. COWS score 0. Pt pleasant, call au within reach. Instructed to call for lunch.
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
--- NOTE | 2024-08-10 15:53 | RESPNOTE ---
patient found with O2 out of nose. SpO2 93% RA. trial off O2 at this time.
[2024-08-10 16:57] LABS: Glucose - Point of Care 169 mg/dl (70-99)
[2024-08-10] MEDS: NOVOLOG FLEXPEN-MODERATE RESISTANCE 1 UNITS SC (17:44)
[2024-08-10] MEDS: LOVENOX 40 MG SC (17:45)
[2024-08-10 21:41] LABS: Glucose - Point of Care 124 mg/dl (70-99)
[2024-08-10] MEDS: FLOMAX 0.4 MG PO (21:41)
[2024-08-10] MEDS: KLONOPIN 0.5 MG PO (21:41)
[2024-08-10] MEDS: LIPITOR 80 MG PO (21:41)
[2024-08-10] MEDS: TYLENOL #3 1 TABLET PO (21:42)
[2024-08-11] MEDS: ADVAIR HFA 115/21 MCG INHALER 2 PUFF INH ×2 (07:37→19:35)
[2024-08-11] MEDS: DUONEB 3 ML INH ×4 (07:37→19:35)
[2024-08-11 07:41] LABS: Glucose - Point of Care 108 mg/dl (70-99)
[2024-08-11 08:03] VITALS: BP 136/71
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
[2024-08-11 08:21] LABS: % Basophils 0.1 % (0-2); % Eosinophils 0.1 % (0-6); % Immature Granulocytes 0.4 % (0-0.5); % Lymphocytes 14.7 % (20.5-51.1); % Monocytes 5.6 % (1.7-9.3); % Neutrophils 79.1 % (42.2-75.2); Absolute Immature Granulocytes 0.1 10^3/uL (0-0.05); Absolute Lymphocytes 2.1 10^3/uL (1.2-3.4); Absolute Monocytes 0.8 10^3/uL (0.1-0.6); Absolute Neutrophils 11.1 10^3/uL (1.4-6.5); Hematocrit 33.7 % (39.0-52.0); Hemoglobin 11.4 g/dL (13.0-18.0); Mean Corp Hgb Conc. 33.8 g/dL (33.0-37.0); Mean Corpuscular Hgb 30.2 pg (27.0-31.0); Mean Corpuscular Volume 89.2 fL (80.0-94.0); Mean Platelet Volume 9.1 fL (7.4-10.4); Nucleated Red Blood Cells % 0 % (-); Platelet Count 376 10^3/uL (130-400); Red Blood Cell Count 3.78 10^6/uL (4.70-6.10); Red Cell Dist. Width 14.5 % (11.5-14.5)
[2024-08-11 08:40] LABS: ALT (SGPT) 169 U/L (0-50); AST (SGOT) 68 U/L (17-59); Alkaline Phosphatase 247 U/L (38-126); Blood Urea Nitrogen 23 mg/dl (9-20); Calcium 8.5 mg/dl (8.4-10.2); Carbon Dioxide 29 mmol/L (22-30); Chloride 100 mmol/L (98-107); Estimated Creatinine Clearance 87 ml/min; Glucose 97 mg/dl (70-99); Potassium 4.5 mmol/L (3.5-5.1); Sodium 132 mmol/L (135-145); Total Bilirubin 0.5 mg/dl (0.2-1.3); Total Protein 5.6 g/dl (6.3-8.2); eGFR > 60.00
[2024-08-11] MEDS: NOVOLOG FLEXPEN-MODERATE RESISTANCE SC ×2 (08:47→12:22)
[2024-08-11] MEDS: DECADRON 6 MG IV (08:48)
[2024-08-11] MEDS: PROTONIX 40 MG PO (08:50)
[2024-08-11] MEDS: MIRAPEX 0.25 MG PO ×2 (08:50→19:50)
[2024-08-11] MEDS: NEURONTIN 300 MG PO ×3 (08:50→21:45)
[2024-08-11] MEDS: ASPIR LOW (ENTERIC COATED) 81 MG PO (08:51)
[2024-08-11] MEDS: PLAVIX 75 MG PO (08:51)
[2024-08-11] MEDS: EFFEXOR XR 150 MG PO (08:51)
[2024-08-11] MEDS: THERAGRAN 1 TABLET PO (08:51)
[2024-08-11] MEDS: VITAMIN C 1000 MG PO (08:51)
[2024-08-11] MEDS: ZINC 50 MG PO ×3 (08:51→21:45)
[2024-08-11] MEDS: BENADRYL 25 MG PO ×2 (08:51→19:50)
[2024-08-11] MEDS: VITAMIN D3 (cholecalciferol) 50 MCG PO (08:51)
[2024-08-11] MEDS: TAMIFLU 75 MG PO ×2 (08:52→19:50)
[2024-08-11] MEDS: ZESTRIL 2.5 MG PO (08:53)
[2024-08-11 11:25] LABS: Glucose - Point of Care 137 mg/dl (70-99)
--- NOTE | 2024-08-11 12:11 | W.PN.HOSP.TC ---
Today's Communication/Plan
-
monitor vitals
see plan
cw nebs
cw steroids
monitor LFT's closely
hope dc in next 24hrs
wean o2 as tolerated
Assessment / Plan
Assessment / Plan
#Acute hypoxemic respiratory insufficiency suspect likely multifactorial secondary to COPD exacerbation and possible atelectasis
#COPD with exacerbation
#Acute metabolic encephalopathy
-Question aspiration; other differentials include COPD and residual influenza symptoms versus noncompliance
-Recently discharged on short course of steroids; per present was noncompliant with meds and O2
-Upon arrival had SpO2 in the 80s, improved with supplemental oxygen being placed
-Recently hospitalized here with flu, plan Tamiflu course through the end of 08/11
-Chest x-ray from admission without any signs of consolidation, PTX, other acute processes
-He does mention at times he has food/drink down the wrong pipe
-Was started on steroid and bronchodilators in the ED
Plan
-Continue steroids with 6 mg IV dexamethasone daily
-Continue DuoNeb every 6 hours standing and as needed
-Titrate supplemental oxygen for SpO2 88 to 94%
No need for Trelegy, continue with Advair
Speech evaluated, okay for regular
#Abnormal LFTs
#S/p cholecystectomy
-Differential diagnosis include drug-induced liver injury versus hypotensive hepatopathy; lower suspicion for gallstone disease
-Liver ultrasound without cirrhotic morphology, did show 11 mm CBD though previous cholecystectomy
-Presented with AST 307, ALT 393, ALP 549; normal T. bili and albumin
-He was recently on prednisone which can cause DILI
-Transitioned to dexamethasone, LFTs downtrending
-Continue to trend LFTs
With no abdominal pain
#Leukocytosis
-Secondary to demargination from recent steroid usage
-Suspicion for bacterial pneumonia or other bacterial infection is very low
-No indication for antibiotics, trend CBC and temperature curve
#Urine retention
#BPH s/p prostate removal
-Mentioned last hospital stay that he had chronic urinary issues
-Was discharged with Mckeon catheter in place and tamsulosin nightly
-Will monitor for signs of infection with Mckeon catheter in place
Pain failed voiding trial 08/09, now with catheter again
Follow-up with urology
Hyponatremia
Monitor
#Fractures of ribs 7 through 10, left side
-No signs of flail chest
-On palpation he does have reproducible tenderness, no gross deformity or step-offs
-Likely traumatic, reported injury around time of arrest
-Tylenol and home percocet for pain
mild atelectasis, monitor
#CAD s/p PCI
-OP records show home meds of DAPT, high intensity statin, ACEi
-Will try to obtain supplemental history from outside records if present
-Will resume him on statin, ACEi, and DAPT for now
-Obtain records from retirement
-Monitor CBC
#T2DM
-Apw-hoxcdmq-wytyqtifr, home medications include metformin twice daily
-No recent A1c thoug doubt that he has been compliant with his outside regimen
-No known history of microvascular disease complications
-Start ISS with Accu-Cheks for now, check A1c 6.4
#Primary HTN
#CVI(?)
-Home medications include lisinopril 2.5 mg daily, Lasix 20 mg daily
-No known history of hypertensive systemic disease, does have history of CAD
-No known history of heart failure, may have CVI which necessitated Lasix
-Will monitor volume status and vital signs on home regimen
#Anxiety/RLS
-Home medications include pramipexole and venlafaxine
DVT prophylaxis: Subcutaneous Lovenox
CODE STATUS: Full code
General: Well Developed, No Apparent Distress and Comfortable
HEENT: Normocephalic, Atraumatic, Moist Mucous Membranes and Anicteric
Respiratory: Clear to Auscultation, Non Labored Respirations and Decreased Breath Sounds
Cardiac: Regular Rhythm and S1/S2
GI: Soft, Nontender, Nondistended and Normal Bowel Sounds
Musculoskeletal:No Edema
Neuro: AO x 3 and Nonfocal/Grossly Intact
Anticipated Discharge: Within 24 hours
Subjective/Interval History
-
Date of Service: August 11, 2024
denies pain
Objective Data
-
Labs:
Laboratory Results
08/11/24
07:59
WBC 14.0 H
Hgb 11.4 L
Hct 33.7 L
Plt Count 376
Sodium 132 L
Potassium 4.5
Chloride 100
Carbon Dioxide 29
BUN 23 H
Creatinine 0.6 L
Glucose 97
Calcium 8.5
Total Bilirubin 0.5
AST 68 H
ALT 169 H
Alkaline Phosphatase 247 H
Vital Signs:
Vital Signs
Temp Pulse Resp BP Pulse Ox
97.7 F 69 20 136/71 98
08/11/24 08:03 08/11/24 08:03 08/11/24 08:03 08/11/24 08:03 08/11/24 11:08
I&O
08/10/24 08/11/24 08/12/24
06:59 06:59 06:59
Intake Total 1260 / 1260
Output Total 2300 / 2300
Balance -1040 / -1040
[2024-08-11] MEDS: MUCINEX 1200 MG PO ×2 (12:37→19:50)
[2024-08-11 15:11] VITALS: BP 129/59
[2024-08-11 16:27] LABS: Glucose - Point of Care 195 mg/dl (70-99)
[2024-08-11] MEDS: NOVOLOG FLEXPEN-MODERATE RESISTANCE 1 UNITS SC (17:28)
[2024-08-11] MEDS: LOVENOX 40 MG SC (17:30)
[2024-08-11 21:35] LABS: Glucose - Point of Care 122 mg/dl (70-99)
[2024-08-11] MEDS: FLOMAX 0.4 MG PO (21:45)
[2024-08-11] MEDS: KLONOPIN 0.5 MG PO (21:45)
[2024-08-11] MEDS: LIPITOR 80 MG PO (21:45)
[2024-08-11 23:20] VITALS: BP 120/58
[2024-08-12] MEDS: TYLENOL #3 1 TABLET PO (04:55)
[2024-08-12] MEDS: DUONEB 3 ML INH ×3 (07:13→15:25)
[2024-08-12] MEDS: ADVAIR HFA 115/21 MCG INHALER 2 PUFF INH (07:13)
[2024-08-12 07:28] LABS: Glucose - Point of Care 106 mg/dl (70-99)
[2024-08-12 07:49] VITALS: BP 117/58
[2024-08-12] MEDS: ASPIR LOW (ENTERIC COATED) 81 MG PO (08:59)
[2024-08-12] MEDS: NEURONTIN 300 MG PO (08:59)
[2024-08-12] MEDS: NOVOLOG FLEXPEN-MODERATE RESISTANCE SC (08:59)
[2024-08-12] MEDS: VITAMIN C 1000 MG PO (09:00)
[2024-08-12] MEDS: THERAGRAN 1 TABLET PO (09:00)
[2024-08-12] MEDS: EFFEXOR XR 150 MG PO (09:00)
[2024-08-12] MEDS: BENADRYL 25 MG PO (09:00)
[2024-08-12] MEDS: ZESTRIL 2.5 MG PO (09:00)
[2024-08-12] MEDS: PROTONIX 40 MG PO (09:00)
[2024-08-12] MEDS: VITAMIN D3 (cholecalciferol) 50 MCG PO (09:00)
[2024-08-12] MEDS: PLAVIX 75 MG PO (09:00)
[2024-08-12] MEDS: MUCINEX 1200 MG PO (09:01)
[2024-08-12] MEDS: DECADRON 6 MG IV (09:01)
[2024-08-12] MEDS: ZINC 50 MG PO (09:01)
[2024-08-12] MEDS: MIRAPEX 0.25 MG PO (09:01)
[2024-08-12 09:27] LABS: % Basophils 0.1 % (0-2); % Eosinophils 0.3 % (0-6); % Immature Granulocytes 0.3 % (0-0.5); % Lymphocytes 18.5 % (20.5-51.1); % Monocytes 6.2 % (1.7-9.3); % Neutrophils 74.6 % (42.2-75.2); Absolute Lymphocytes 2.4 10^3/uL (1.2-3.4); Absolute Monocytes 0.8 10^3/uL (0.1-0.6); Absolute Neutrophils 9.6 10^3/uL (1.4-6.5); Hematocrit 36.6 % (39.0-52.0); Hemoglobin 12.5 g/dL (13.0-18.0); Mean Corp Hgb Conc. 34.2 g/dL (33.0-37.0); Mean Corpuscular Hgb 30.8 pg (27.0-31.0); Mean Corpuscular Volume 90.1 fL (80.0-94.0); Nucleated Red Blood Cells % 0 % (-); Platelet Count 361 10^3/uL (130-400); Red Blood Cell Count 4.06 10^6/uL (4.70-6.10); Red Cell Dist. Width 14.4 % (11.5-14.5); White Blood Cell Count 12.8 10^3/uL (4.8-10.8)
[2024-08-12 10:12] LABS: ALT (SGPT) 146 U/L (0-50); AST (SGOT) 51 U/L (17-59); Albumin 3.4 g/dl (3.5-5.0); Alkaline Phosphatase 236 U/L (38-126); Blood Urea Nitrogen 27 mg/dl (9-20); Calcium 8.7 mg/dl (8.4-10.2); Carbon Dioxide 27 mmol/L (22-30); Chloride 97 mmol/L (98-107); Estimated Creatinine Clearance 87 ml/min; Glucose 93 mg/dl (70-99); Potassium 4.7 mmol/L (3.5-5.1); Sodium 130 mmol/L (135-145); Total Bilirubin 0.8 mg/dl (0.2-1.3); eGFR > 60.00
--- NOTE | 2024-08-12 12:21 | W.PN.HOSP.TC ---
Today's Communication/Plan
-
Monitor vital signs see plan
Switch steroids to oral with taper
Continue with Thierry molina
Discharge today
Time of discharge 38 minutes
Assessment / Plan
Assessment / Plan
#Acute hypoxemic respiratory insufficiency suspect likely multifactorial secondary to COPD exacerbation and possible atelectasis
#COPD with exacerbation
#Acute metabolic encephalopathy
-Question aspiration; other differentials include COPD and residual influenza symptoms versus noncompliance
-Recently discharged on short course of steroids; per present was noncompliant with meds and O2
-Upon arrival had SpO2 in the 80s, improved with supplemental oxygen being placed
-Recently hospitalized here with flu, plan Tamiflu course through the end of 08/11
-Chest x-ray from admission without any signs of consolidation, PTX, other acute processes
-He does mention at times he has food/drink down the wrong pipe
-Was started on steroid and bronchodilators in the ED
Plan
-Switch steroids to oral with taper
-Make DuoNeb as needed
-Now weaned off oxygen
No need for Trelegy, continue with Advair
Speech evaluated, okay for regular
#Abnormal LFTs
#S/p cholecystectomy
-Differential diagnosis include drug-induced liver injury versus hypotensive hepatopathy; lower suspicion for gallstone disease
-Liver ultrasound without cirrhotic morphology, did show 11 mm CBD though previous cholecystectomy
-Presented with AST 307, ALT 393, ALP 549; normal T. bili and albumin
-He was recently on prednisone which can cause DILI
-Transitioned to dexamethasone, LFTs downtrending
-Continue to trend LFTs;
With no abdominal pain
#Leukocytosis
-Secondary to demargination from recent steroid usage
-Suspicion for bacterial pneumonia or other bacterial infection is very low
-No indication for antibiotics, trend CBC and temperature curve
#Urine retention
#BPH s/p prostate removal
-Mentioned last hospital stay that he had chronic urinary issues
-Was discharged with Mckeon catheter in place and tamsulosin nightly
-Will monitor for signs of infection with Mckeon catheter in place
Pain failed voiding trial 08/09, now with catheter again
Follow-up with urology
Hyponatremia
Monitor
#Fractures of ribs 7 through 10, left side
-No signs of flail chest
-On palpation he does have reproducible tenderness, no gross deformity or step-offs
-Likely traumatic, reported injury around time of arrest
-Tylenol and home percocet for pain
mild atelectasis, monitor
#CAD s/p PCI
-OP records show home meds of DAPT, high intensity statin, ACEi
-Will try to obtain supplemental history from outside records if present
-Will resume him on statin, ACEi, and DAPT for now
-Obtain records from [facility]way
-Monitor CBC
#T2DM
-Wll-iqvhfbc-wrlygxqvt, home medications include metformin twice daily
-No recent A1c thoug doubt that he has been compliant with his outside regimen
-No known history of microvascular disease complications
-Start ISS with Accu-Cheks for now, check A1c 6.4
#Primary HTN
#CVI(?)
-Home medications include lisinopril 2.5 mg daily, Lasix 20 mg daily
-No known history of hypertensive systemic disease, does have history of CAD
-No known history of heart failure, may have CVI which necessitated Lasix
-Will monitor volume status and vital signs on home regimen
#Anxiety/RLS
-Home medications include pramipexole and venlafaxine
DVT prophylaxis: Subcutaneous Lovenox
CODE STATUS: Full code
General: Well Developed, No Apparent Distress and Comfortable
HEENT: Normocephalic, Atraumatic, Moist Mucous Membranes and Anicteric
Respiratory: Clear to Auscultation, Non Labored Respirations and Decreased Breath Sounds
Cardiac: Regular Rhythm and S1/S2
GI: Soft, Nontender, Nondistended and Normal Bowel Sounds
Musculoskeletal:No Edema
Neuro: AO x 3 and Nonfocal/Grossly Intact
Anticipated Discharge: Today
Subjective/Interval History
-
Date of Service: August 12, 2024
denies chest pain
Objective Data
-
Labs:
Laboratory Results
08/12/24
09:14
WBC 12.8 H
Hgb 12.5 L
Hct 36.6 L
Plt Count 361
Sodium 130 L
Potassium 4.7
Chloride 97 L
Carbon Dioxide 27
BUN 27 H
Creatinine 0.6 L
Glucose 93
Calcium 8.7
Total Bilirubin 0.8
AST 51
ALT 146 H
Alkaline Phosphatase 236 H
Vital Signs:
Vital Signs
Temp Pulse Resp BP Pulse Ox
98 F 72 18 117/58 99
08/11/24 23:20 08/12/24 11:50 08/12/24 11:50 08/12/24 09:00 08/12/24 11:00
I&O
08/11/24 08/12/24 08/13/24
06:59 06:59 06:59
Intake Total 1260 / 1260 960 / 960
Output Total 2300 / 2300 1400 / 1400
Balance -1040 / -1040 -440 / -440
[2024-08-12 12:33] LABS: Glucose - Point of Care 179 mg/dl (70-99)
[2024-08-12] MEDS: NOVOLOG FLEXPEN-MODERATE RESISTANCE 1 UNITS SC (12:35)
--- NOTE | 2024-08-12 12:35 | W.DCSUMMARY ---
Discharge Summary
Discharge Data
Date of Admission: 08/08/24
Date of Discharge: 08/12/24
-
Pending Results: No
Hospital Course
74-year-old male with past medical history of urinary retention, rib fracture, CAD status post PCI, type 2 diabetes mellitus, hypertension, COPD, anxiety, restless leg syndrome came to the hospital from shelter with worsening shortness of breath with
acute hypoxemic respiratory insufficiency which was likely thought was multifactorial secondary to COPD exacerbation with recent flu and possible atelectasis. Patient also had acute metabolic encephalopathy which over time continue to improve. He
finished Tamiflu before discharge. He was also able to be weaned off oxygen prior to discharge. Initially patient was started on IV steroid which was later transitioned to p.o. prednisone with taper on discharge. He also had abnormal LFTs however
there was no concern of gallstone pathology especially since patient had no pain and his LFTs were improving. He also had persistent urinary retention and voiding trial was tried however patient failed so he got Mckeon catheter again. He was
instructed to follow-up with urology outpatient. Over time patient oxygenation and symptoms continue to improve and he was discharged back to shelter with instructions to follow-up with all his physicians outpatient.
Discharge Plan
-
Patient Disposition: Group Home
Discharge Diagnosis/Procedures: Acute hypoxemic respiratory insufficiency suspect likely multifactorial secondary to COPD exacerbation and possible atelectasis
Acute metabolic encephalopathy
Elevated LFTs
Urinary retention
Hyponatremia
Diet: As tolerated
Activity: As tolerated
Driving Restrictions: Not until seen by your Dr
Bathing Restrictions: None
Blood Work: CBC and BMP next week
Referrals:
Jazmin Hills MD [Active] -
[facility] [Family Provider] - in less than 1 week
Harley Chris MD [Active] - in one to two weeks
Prescriptions:
New
ipratropium-albuterol 0.5 mg-3 mg(2.5 mg base)/3 mL Solution For Nebulization
3 ml inhalation R QID Qty: 0 0RF
polyethylene glycol 3350 17 gram Powder In Packet
17 g PO DAILYPRN PRN (Reason: constipation) Qty: 0 0RF
guaifenesin 600 mg Tablet Extended Release 12hr
1,200 mg PO Q12 Qty: 0 0RF
prednisone 10 mg Tablet
See Rx Instructions .ROUTE .COMPLEX Qty: 18 0RF
Rx Instructions:
Take By Mouth:
30 mg daily x3 days,
20 mg daily x3 days, 10 mg daily x3 days.
Continued
metformin 500 MG tablet
500 mg PO BID@0800,1700
atorvastatin 80 MG tablet
80 mg PO HS
aspirin 81 MG tablet,delayed release (DR/EC)
81 mg PO DAILY
pantoprazole 40 MG tablet,delayed release (DR/EC)
40 mg PO DAILY
furosemide 20 MG tablet
20 mg PO DAILY
albuterol sulfate 1 PUFF HFA aerosol inhaler
2 puff inhalation R QIDPRN PRN (Reason: sob/wheeze)
multivitamin with folic acid [Tab-A-Alivia] 1 TABLET tablet
1 tab PO DAILY
ascorbic acid (vitamin C) [Vitamin C] 1,000 MG tablet
1,000 mg PO DAILY
lisinopril 2.5 MG tablet
2.5 mg PO DAILY
zinc sulfate 220 MG capsule
220 mg PO TID
cholecalciferol (vitamin D3) 2,000 UNITS tablet
2,000 units PO DAILY
fluticasone propion-salmeterol [Advair Diskus] 250-50 mcg/dose Blister With Device
2 inh INHALATION R BID
venlafaxine 75 mg Tablet
150 mg PO DAILY
clonazepam 0.5 mg Tablet
0.5 mg PO HS
acetaminophen-codeine 300-30 mg Tablet
1 tab PO TIDPRN PRN (Reason: MILD PAIN)
clopidogrel [Plavix] 75 mg Tablet
75 mg PO DAILY
diphenhydramine HCl [Benadryl] 25 mg Capsule
25 mg PO BID
pramipexole 0.25 mg Tablet
0.25 mg PO BID
gabapentin 300 mg Capsule
300 mg PO TID
tamsulosin 0.4 mg capsule
0.4 mg PO HS
Discontinued
albuterol sulfate 2.5 MG/3 ML solution for nebulization
2.5 mg inhalation R QIDPRN PRN (Reason: sob/wheezing)
prednisone 20 mg Tablet
40 mg PO DAILY 5 Days Qty: 10 0RF
oseltamivir [Tamiflu] 75 mg Capsule
75 mg PO BID
Rx Instructions:
TAKE INTIL 08/11/2024
Discharge Orders:
Discharge Patient (As Directed); Ordered 08/12/24
Ordered By: Chacorta Fisher
Discharge Date and Time
Discharge Date/Time: 08/12/24 17:00
Print Language: MACEDONIAN
--- NOTE | 2024-08-12 13:14 | CM ---
Chart reviewed and plan is for patient to return to [facility].
Discharge Disposition-
Return [facility]
Phone- [phone]
Fax- [phone]
[2024-08-12] MEDS: FLUAD (65 yr+) 2024-2025 FORMULA 0.5 ML IM (13:34)
[2024-08-12 13:42] VITALS: BP 113/63
== END 2024-08-12 17:00 | DRG 190 ==
LOC: 3 WEST ACU 17:24
PROVIDERS: Nurse Practitioner; ADMITTING PHYSICIAN Internal Medicine; ATTENDING PHYSICIAN Internal Medicine; EMERGENCY PHYSICIAN Emergency Medicine
DX: J44.1 Chronic obstructive pulmonary disease with (acute) exacerbation (principal); G93.41 Metabolic encephalopathy; S22.42XA Multiple fractures of ribs, left side, initial encounter for closed fracture; E87.1 Hypo-osmolality and hyponatremia; J98.11 Atelectasis; I10 Essential (primary) hypertension; I25.10 Atherosclerotic heart disease of native coronary artery without angina pectoris; Z95.5 Presence of coronary angioplasty implant and graft; Z91.199 Patient's noncompliance with other medical treatment and regimen due to unspecified reason; R09.02 Hypoxemia; E11.9 Type 2 diabetes mellitus without complications; D72.829 Elevated white blood cell count, unspecified; E78.5 Hyperlipidemia, unspecified; E86.0 Dehydration; F17.200 Nicotine dependence, unspecified, uncomplicated; F41.9 Anxiety disorder, unspecified; G25.81 Restless legs syndrome; N40.1 Benign prostatic hyperplasia with lower urinary tract symptoms; R33.8 Other retention of urine; Z79.82 Long term (current) use of aspirin; Z79.84 Long term (current) use of oral hypoglycemic drugs; Z79.52 Long term (current) use of systemic steroids; Z79.51 Long term (current) use of inhaled steroids; Z79.899 Other long term (current) drug therapy; X58.XXXA Exposure to other specified factors, initial encounter
CPT/HCPCS: 51701; 51702; 51798; 71046; 76700; 80048; 80053; 80306; 80307; 82248; 82962; 83036; 83735; 85025; 87070; 90662; 92610; 93005; 94640; 96361; 96374; 99285; 99406; G0008

== ENCOUNTER 2024-08-12 19:27 | Emergency (ER) | payer OTHER, SELFPAY ==
[2024-08-12 19:38] VITALS: BP 115/62
[2024-08-12 19:43] VITALS: BP 115/62; BMI 24.9
--- NOTE | 2024-08-12 19:58 | ED.GENMED ---
History of Present Illness
General
Chief Complaint: Breathing Problem
Source: patient
Exam Limitations: none
Time Seen by Provider: 08/12/24 19:44
Nursing documentation reviewed up to this point in time: agreed with
History of Present Illness
History of Present Illness:
Patient with history of COPD, discharged from [facility] 3 hours ago, presents to ED from [facility] secondary to shortness of breath, after he was evaluated by physician at [facility]. Upon
arrival, patient is afebrile with minimal wheezing, but not hypoxic. Patient has no complaints. Denies chest pain. Reports intermittent coughing. Denies decreased appetite. Denies vomiting or diarrhea. Denies fever. Denies leg pain or
swelling. Denies back pain.
Past History
Past History
ED Past Medical History: CAD and COPD; Negative Arrthythmia or Asthma
ED Past Surgical History: Cardiac (Stent)
Social History
Tobacco: Former smoker
Alcohol: None
Drug: None
Personal: Other (Noncontributory)
Living: senior living
Employment: Not employed
Family History
Family History: Hypertension
Review of Systems
Review of Systems
Allergies reviewed?: Yes
All Other Systems: ROS reviewed and negative except as documented in HPI and ROS
Constitutional: Reports no symptoms
Respiratory: Reports cough and trouble breathing
Cardiac: Reports no symptoms
ABD/GI: Reports no symptoms; Denies vomiting or diarrhea
Musculoskeletal: Reports no symptoms
Skin: Reports no symptoms
Neurological: Reports no symptoms
Phy Exam
Physical Exam
Physical Exam:
Physical Exam
General: no apparent distress, not acutely ill. afebrile
Head: nc/at. eomi
Neck: supple. normal range of motion.
Heart: s1/s2 regular rate and rhythm, no murmur. equal radial pulses.
Lungs: no acute respiratory distress. minimal expiratory wheezing bilaterally
Abdomen: normal bowel sounds. not tender.
Neuro: alert and oriented x 3. no focal neurological deficits
Skin: no rash
Psychiatric: well kept. interactive and cooperative
Extremities: no edema. no calf tenderness.
Scores
Heart Failure Risk
Heart Failure Risk Score: Not Applicable
Course
Orders/Labs/Results
Orders:
Orders
08/12/24 19:52
Ipratropium/Albuterol Sulfate [Duoneb] 3 ml INH R NOW STA
Vital Signs
Initial and Last Documented VS:
Initial Vital Signs
BP Pulse Ox
115/62 98
08/12/24 19:38 08/12/24 19:38
Last Documented Vital Signs
Temp Pulse Resp BP Pulse Ox
97.9 F 76 25 112/64 94
08/12/24 19:43 08/12/24 21:30 08/12/24 21:30 08/12/24 21:00 08/12/24 21:30
MDM/Problems Addressed
MDM/Problems Addressed:
Patient remains afebrile, hemodynamically stable, and without any acute respiratory distress during observation. In light of patient's mild wheezing, patient given nebulizer treatment during observation. As such, after discussion with infirmary at
[facility] ([facility]), patient will be discharged back to senior living for continual care. Patient already has been prescribed taper dose of prednisone as well as continual inhaler treatment, at time of discharge from [place]
hospital this afternoon, which he will continue.
*Critical Care Note
Total Time (30-74mins, 75-104mins- exclusive of procedures): Not Applicable
ED Attending Note
-
Portions of this chart may have been created with voice recognition software.� Occasional wrong word or��sound alike� substitutions may have occurred due to the inherent limitations of voice recognition software.
Discharge Plan
Departure
Patient Disposition: Group Home
Date of Disposition: 08/12/24
Time of Disposition: 21:57
Patient with high blood pressure during this ER visit?: No
Discharge Problem:
COPD (chronic obstructive pulmonary disease)
Instructions: Chronic obstructive pulmonary disease (COPD) - Discharge instructions
Prescriptions:
No Action
metformin 500 MG tablet
500 mg PO BID@0800,1700
atorvastatin 80 MG tablet
80 mg PO HS
aspirin 81 MG tablet,delayed release (DR/EC)
81 mg PO DAILY
pantoprazole 40 MG tablet,delayed release (DR/EC)
40 mg PO DAILY
furosemide 20 MG tablet
20 mg PO DAILY
albuterol sulfate 1 PUFF HFA aerosol inhaler
2 puff inhalation R QIDPRN PRN (Reason: sob/wheeze)
multivitamin with folic acid [Tab-A-Alivia] 1 TABLET tablet
1 tab PO DAILY
ascorbic acid (vitamin C) [Vitamin C] 1,000 MG tablet
1,000 mg PO DAILY
lisinopril 2.5 MG tablet
2.5 mg PO DAILY
zinc sulfate 220 MG capsule
220 mg PO TID
cholecalciferol (vitamin D3) 2,000 UNITS tablet
2,000 units PO DAILY
fluticasone propion-salmeterol [Advair Diskus] 250-50 mcg/dose Blister With Device
2 inh INHALATION R BID
venlafaxine 75 mg Tablet
150 mg PO DAILY
clonazepam 0.5 mg Tablet
0.5 mg PO HS
acetaminophen-codeine 300-30 mg Tablet
1 tab PO TIDPRN PRN (Reason: MILD PAIN)
clopidogrel [Plavix] 75 mg Tablet
75 mg PO DAILY
diphenhydramine HCl [Benadryl] 25 mg Capsule
25 mg PO BID
pramipexole 0.25 mg Tablet
0.25 mg PO BID
gabapentin 300 mg Capsule
300 mg PO TID
tamsulosin 0.4 mg capsule
0.4 mg PO HS
ipratropium-albuterol 0.5 mg-3 mg(2.5 mg base)/3 mL Solution For Nebulization
3 ml inhalation R QID Qty: 0 0RF
polyethylene glycol 3350 17 gram Powder In Packet
17 g PO DAILYPRN PRN (Reason: constipation) Qty: 0 0RF
guaifenesin 600 mg Tablet Extended Release 12hr
1,200 mg PO Q12 Qty: 0 0RF
prednisone 10 mg Tablet
See Rx Instructions .ROUTE .COMPLEX Qty: 18 0RF
Rx Instructions:
Take By Mouth:
30 mg daily x3 days,
20 mg daily x3 days, 10 mg daily x3 days.
Referrals:
[facility] [Family Provider] -
Activity Restrictions/Additional Instructions:
As discussed, you are being discharged back to [facility] for continual care. Please continue take already prescribed taper dose of prednisone along with inhaler treatment. Please consider return to ED with worsening
symptoms.
Interventions
Interventions:
*Risk Screen - Suicide Last Done: 08/12/24 19:43
*General Assessment Last Done: 08/12/24 19:43
*Neglect/Abuse Screening Last Done: 08/12/24 19:43
ED- Fall Risk Assessment Last Done: 08/12/24 22:11
*ED COVID-19 Vaccine History Last Done: 08/12/24 19:43
*Nursing Disposition Last Done: 08/12/24 22:11
ED- Cardiac Assessment Last Done: 08/12/24 20:30
ED- Pulmonary Assessment Last Done: 08/12/24 20:30
Discharge Date and Time
Discharge Date/Time: 08/12/24 22:12
Print Language: SLOVAK
[2024-08-12 20:00] VITALS: BP 118/66
[2024-08-12] MEDS: DUONEB 3 ML INH (20:13)
[2024-08-12 21:00] VITALS: BP 112/64
== END 2024-08-12 22:12 ==
LOC: EMR 19:27
PROVIDERS: EMERGENCY PHYSICIAN Emergency Medicine
DX: J44.9 Chronic obstructive pulmonary disease, unspecified (principal); I25.10 Atherosclerotic heart disease of native coronary artery without angina pectoris; Z87.891 Personal history of nicotine dependence; Z95.5 Presence of coronary angioplasty implant and graft
CPT/HCPCS: 94640; 99283